=== PATIENT | female | born 1995 | race Caucasian/White ===

== ENCOUNTER 2023-12-28 18:11 | Emergency (ER) | payer SELFPAY ==
[~2023-12-28] VITALS: Ht 167.6 cm; Wt 68.0 kg
[2023-12-28 18:14] VITALS: BP 124/80; PULSE 82; RESP 18; TEMP 98.3; O2SAT 99
== END 2023-12-28 20:28 | disposition home or self-care (01) ==
LOC: ER 18:11
DX: F41.9 Anxiety disorder, unspecified (principal); F41.0 Panic disorder [episodic paroxysmal anxiety]
CPT/HCPCS: 93005; 99283